=== PATIENT | male | born 1935 | race Caucasian/White ===

== ENCOUNTER 2017-10-01 07:55 | Day surgery (SDC) | payer OTHER ==
[2017-10-01] MEDS ORDERED: LR 1,000 ML IV ONE (08:38)
[2017-10-01] MEDS ORDERED: NALOXONE HCL 0.4 MG/ML INJ IVP PRN (10:27)
--- NOTE | 2017-10-01 10:27 | POSTANESTH ---
Post Anesthetic Evaluation Respiratory Status: Normal, Stable Level of Consciousness/Mental Status: Can Participate in Eval Pain Control: Adequate, Prn Tx Ordered Nausea/Vomiting Control: Adequate, Prn Tx Ordered Complications Possibly Related to Anesthesia: None Noted
--- NOTE | 2017-10-01 10:27 | PDANEPAE ---
ANE History of Present Illness 82 year old male for EGD for anemia ANE Past Medical History - Cardiovascular History Hx Hypertension: Yes Hx Arrhythmias: No Hx Chest Pain: No Hx Coronary Artery / Peripheral Vascular Disease: No Hx CHF / Valvular Disease: No Hx Palpitations: No Cardiovascular History Comment: TAKEN OFF LISINOPRIL DUE TO JOE LE EDEMA - TAKING LASIX - Pulmonary History Hx COPD: No Hx Asthma/Reactive Airway Disease: No Hx Recent Upper Respiratory Infection: No Hx Oxygen in Use at Home: No Hx Sleep Apnea: No Sleep Apnea Screening Result - Last Documented: Positive - Neurologic History Hx Cerebrovascular Accident: Yes Hx Seizures: No Hx Dementia: No Neurologic History Comment: 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 RASHES - Chronic Pain History Chronic Pain: No - Surgical History Prior Surgeries: BONE SPUR. THYROIDECTOMY. HERNIA REPAIR. [facility]MB HERNIA REPAIR. ENDOSCOPY ANE Review of Systems Review of Systems: - Exercise capacity METS (RN): 4 METS ANE Patient History - Allergies Allergies/Adverse Reactions: naproxen Allergy (Intermediate, Verified 09/24/17 11:26) LUMPY RASH - Home Medications Home Medications: Aripiprazole 09/24/17 [Last Taken Unknown] Aspirin 09/24/17 [Last Taken Unknown] Duloxetine HCl 09/24/17 [Last Taken Unknown] Ferrous Sulfate 09/24/17 [Last Taken 10/01/17] Flomax 09/24/17 [Last Taken 10/01/17] Herbals/Supplements -Info Only 09/24/17 [Last Taken 10/01/17] Lasix 09/24/17 [Last Taken Unknown] Levothyroxine 09/24/17 [Last Taken 10/01/17] Mirtazapine 09/24/17 [Last Taken 10/01/17] Omeprazole 09/24/17 [Last Taken 10/01/17] Simvastatin 09/24/17 [Last Taken 10/01/17] - NPO status NPO Since - Liquids (Date): 09/30/17 NPO Since - Liquids (Time): 23:20 NPO Since - Solids (Date): 09/30/17 NPO Since - Solids (Time): 15:00 - Smoking Hx Smoking Status: Never smoked - Family Anes Hx Family Hx Anesthesia Complications: NEG ANE Labs/Vital Signs - Vital Signs Blood Pressure: 134/71 Heart Rate: 62 Respiratory Rate: 18 O2 Sat (%): 97 Height: 177.8 cm Weight: 83.915 kg ANE Physical Exam - Airway Mallampati Score: Class 1 - ASA Status ASA Status: II ANE Anesthesia Plan Anesthesia Plan: MAC
[2017-10-01] MEDS ORDERED: LIDOCAINE 2% 5 ML SDV ONE (10:51)
[2017-10-01] MEDS ORDERED: PROPOFOL 200 MG/20 ML VIAL ONE (10:51)
--- NOTE | 2017-10-01 11:07 | PDGENHP ---
History & Physical Chief Complaint: Iron deficiency anemia History of Present Illness: 82 yo male with remote PUD. Now worsening JAMIE Pertinent Past, Social, Family History: JAMIE. PUD. Edema. Bipolar disorder Relevant Physical Exam: NAD. Distant heart sounds. No rales. Obese. NABS. No R/G. No HSM. Edema Cardiorespiratory Assessment: ASA III. EGD for JAMIE
[2017-10-01 11:22] VITALS: PULSE 54
[2017-10-01 11:48] VITALS: TEMP 96.8
--- NOTE | 2017-10-01 12:06 | GIREPORT ---
[facility] - Endoscopy Department Patient Name: Lc Reynoso Procedure Date: 10/01/2017 10:41 AM Patient Type: Outpatient Attending MD/ ER Physician: Grupo Jauregui MD Procedure: Upper GI endoscopy Indications: Iron deficiency anemia Providers: Grupo Jauregui MD Medicines: Propofol per Anesthesia Complications: No immediate complications. Description of Procedure: After obtaining informed consent, the endoscope was passed under direct vision. Throughout the procedure, the patient's blood pressure, pulse, and oxygen saturations were monitored continuously. The Endoscope was intro duced through the mouth, and advanced to the second part of duodenum. [facility] GI endoscopy was accomplished without difficulty. The patient tolerated th e procedure well. Findings: The esophagus was normal. A medium-sized hiatal hernia was present. The duodenal bulb, first portion of the duodenum and second portion of the duodenum were normal. Biopsies were taken with a cold forceps for histo logy. Estimated Blood Loss: Estimated blood loss: none. Post Op Diagnosis: - Normal esophagus. - Medium-sized hiatal hernia. - Normal duodenal bulb, first portion of the duodenum and second portio n of the duodenum. Biopsied. Recommendation: - Await pathology results. - Discharge patient to home (ambulatory). - Continue present medications. - Advance diet as tolerated. - Return to referring physician as previously scheduled. - Thank you for allowing me to be involved in the care of your patient. Attending Participation: I personally performed the entire procedure without the assistance of a fellow, resident or surg ical optometrist assistant. Grupo Jauregui MD Grupo Jauregui MD 10/01/2017 12:05:38 PM This report has been signed electronicallyDavid MD Shania Number of Addenda: 0 Note Initiated On: 10/01/2017 10:41 AM [email or web address]
[2017-10-01 12:12] VITALS: BP 139/74; RESP 14; O2SAT 98
== END 2017-10-01 12:21 | disposition home or self-care (01) ==
LOC: FSGY 07:55
PROVIDERS: ATTEND Internal Medicine Gastroenterology
PROC: 0DB98ZX Excision of Duodenum, Via Natural or Artificial Opening Endoscopic, Diagnostic (ICD-10-PCS; principal; 2017-10-01 09:45)
DX: D50.9 Iron deficiency anemia, unspecified (principal); K44.9 Diaphragmatic hernia without obstruction or gangrene; R60.9 Edema, unspecified; I10 Essential (primary) hypertension; I69.959 Hemiplegia and hemiparesis following unspecified cerebrovascular disease affecting unspecified side
CPT/HCPCS: J2704